=== PATIENT | male | born 1980 | race Caucasian/White ===

== ENCOUNTER 2017-10-25 22:19 | Emergency (ER) | payer BC, OTHER | END 2017-10-25 23:40 | disposition home or self-care (01) | LOC: JER 22:19 | DX: L03.115 Cellulitis of right lower limb (principal) | CPT/HCPCS: 99281-25 ==

== ENCOUNTER 2018-04-23 15:33 | Emergency (ER) | payer OTHER ==
--- NOTE | 2018-04-23 15:41 | PDOC ---
Rapid Medical Evaluation Medical Evaluation: Allergies Allergy/AdvReac Type Severity Reaction Status Date / Time Penicillins Allergy Mild Verified 10/25/17 22:24 04/23/18 15:39 Pt presents with cut to his chin. 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 Unsure if the cut was cut by ground or the suspects clothing. Last tetanus 2009. Exam: abrasion to lower chin Orders: Boostrix Pt to proceed to ED for further evaluation Discharge Disposition - Diagnosis Abrasion - Referrals - Patient Instructions - Post Discharge Activity
[2018-04-23] MEDS ORDERED: DIPHTH,PERTUSS(ACELL),TET 0.5 ML DISP.SYRIN IM ONE (15:42)
[2018-04-23 15:43] VITALS: BP 170/90; PULSE 76; BMI 30.5
--- NOTE | 2018-04-23 16:19 | PDOC ---
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 Patient incurred a small laceration to the underside of his right chin. No LOC, no dental injury, no other injury. Tetanus needs booster Occurred: reports: just prior to arrival, this afternoon Severity: reports: mild, moderate Pain Location: reports: face Method of Injury: Yes: direct blow Modifying Factors: improves with: None Loss of Consciousness: no loss of consciousness Associated Symptoms (Fall): denies symptoms Past History - Travel Traveled outside of the country in the last 30 days: No Close contact w/someone who was outside of country & ill: No - Past Medical History Allergies/Adverse Reactions: Allergies Allergy/AdvReac Type Severity Reaction Status Date / Time Penicillins Allergy Mild Verified 04/23/18 15:39 COPD: No - Surgical History Cholecystectomy: Yes - Immunization History Td Vaccination: Yes (2 yrs old tetanus) - Suicide/Smoking/Psychosocial Hx Smoking Status: No Smoking History: Never smoked Years of Tobacco Use: 0 Have you smoked in the past 12 months: No Number of Cigarettes Smoked Daily: 0 Cigars Per Day: 0 Hx Alcohol Use: No Drug/Substance Use Hx: No Substance Use Type: None Review of Systems - Review of Systems Able to Perform ROS?: Yes Is the patient limited Austrian proficient: Yes Constitutional: Yes: Symptoms Reported, See HPI, Malaise HEENTM: Yes: Symptoms Reported, See HPI, Mouth Pain Respiratory: No: Symptoms reported (no dental injury) Integumentary: Yes: Symptoms Reported, See HPI Neurological: Yes: See HPI. No: Symptoms reported, Headache All Other Systems: Reviewed and Negative *Physical Exam - Vital Signs Last Vital Signs Temp Pulse Resp BP Pulse Ox 76 18 170/90 98 04/23/18 15:41 04/23/18 15:41 04/23/18 15:41 04/23/18 15:41 - Physical Exam General Appearance: Yes: Nourished, Appropriately Dressed HEENT: positive: JHONY, Normal ENT Inspection. negative: Rhinorrhea Neck: positive: Supple. negative: Tender Gastrointestinal/Abdominal: positive: Soft Integumentary: positive: Normal Color, Dry, Warm, Other (1 cm U-shaped laceration to the right mid mandible/chin with no active bleeding. Has full range of motion to jaw, no dental injury.) Neurologic: positive: economics lecturer II-XII NML intact, Fully Oriented, Alert, Normal Mood/ Affect, Normal Response, Motor Strength 5/5 Procedures - Laceration/Wound Repair Right Face Wound Length: to 2.5 cm Wound Explored: clean Wound's Depth, Shape: superficial Irrigated w/ Saline: Yes Wound Repaired With: Dermabond ED Treatment Course - Medications Given in the ED: ED Medications Discontinued Medications Generic Name Dose Route Start Last Admin Trade Name Freq PRN Reason Stop Dose Admin Diphtheria/Tetanus/Acell Pertussis 0.5 ml 04/23/18 15:42 04/23/18 16:08 Boostrix - IM 04/23/18 15:43 0.5 ml .ONCE ONE Administration Progress Note - Progress Note Progress Note: Chin laceration with Dermabond approximation. . Tetanus/diphtheria/pertussis booster updated today *DC/Admit/Observation/Transfer Diagnosis at time of Disposition: Abrasion - Discharge Dispostion Disposition: HOME Condition at time of disposition: Stable Decision to Admit order: No - Referrals Referrals: Yan Reynolds MD [Primary Care Provider] - - Patient Instructions Printed Discharge Instructions: DI for Laceration Repair With Dermabond Additional Instructions: Rest, no strenuous activity or exercise until glue is dissolved or lifted Wash from the neck down only and avoid hot steamy environment until Dermabond is gone No bathing or swimming until Dermabond is dissolved Avoid peeling away as wound will open Dermabond should be resolved within 3-7 days May use Tylenol or Motrin for pain relief Followup with refinery superintendent as needed Return to emergency department for worsening swelling, pain, redness or signs of cellulitis If the wound reopens, may not be reclosed as will be a dirty wound and will need to heal by secondary intention - Post Discharge Activity Forms/Work/School Notes: Back to Work
== END 2018-04-23 16:29 | disposition home or self-care (01) ==
LOC: JERFT 15:33
PROC: 0HQ1XZZ Repair Face Skin, External Approach (ICD-10-PCS; principal; 2018-04-23)
DX: S01.81XA Laceration without foreign body of other part of head, initial encounter (principal); W51.XXXA Accidental striking against or bumped into by another person, initial encounter; Y93.89 Activity, other specified; Y92.410 Unspecified street and highway as the place of occurrence of the external cause; Y99.0 Civilian activity done for income or pay; Y35.891A Legal intervention involving other specified means, law enforcement official injured, initial encounter
CPT/HCPCS: 90715; 99281-25

== ENCOUNTER 2022-08-04 20:24 | Emergency (ER) | payer BC, OTHER ==
[2022-08-04 20:40] VITALS: BP 133/86; RESP 18; TEMP 98; BMI 31.8
[2022-08-04] MEDS ORDERED: SODIUM CHLORIDE 0.9% 1000 ML INFUS.BAG IV ONE (20:41)
[2022-08-04 21:16] LABS: HEMATOCRIT 42.6 % (35.4-49); HEMOGLOBIN 14.6 G/dL (11.7-16.9); MCH 31.2 pg (25.7-33.7); MCHC 34.3 g/dl (32.0-35.9); MEAN CELL VOLUME 90.9 fl (80-96); MEAN PLT VOLUME 9.8 fl (7.5-11.1); RBC 4.69 10^6/uL (4.00-5.60); RDW 14.1 % (11.9-15.9); WHITE BLOOD COUNT 4.6 10^3/uL (4.0-10.8)
[2022-08-04 21:20] LABS: ALBUMIN 4.6 g/dl (3.4-5.0); BILIRUBIN,TOTAL 0.6 mg/dl (0.2-1); CALCIUM 10.1 mg/dl (8.5-10); TOT PROT 7.7 g/dl (6.4-8.2)
[2022-08-04 21:42] VITALS: PULSE 52
[2022-08-04 22:31] LABS: PLATELET ESTIMATE ADEQUATE
== END 2022-08-04 21:59 | disposition home or self-care (01) ==
LOC: FER 20:24
DX: R06.02 Shortness of breath (principal)
CPT/HCPCS: 0241U-QW; 36415; 71046-TC-FY; 80053; 84484; 85027; 93005; 99285-25